=== PATIENT | female | born 1960 ===

== ENCOUNTER 2022-06-12 08:55 | Inpatient (IN) ==
[2022-06-12] MEDS ORDERED: IOPAMIDOL 100 ML BOTTLE IV ONE (08:56)
[2022-06-12] MEDS ORDERED: ONDANSETRON 4 MG/2 ML VIAL IV ONE (09:04)
[2022-06-12] MEDS ORDERED: morphine 4 MG/ML VIAL IV ONE (09:13)
--- NOTE | 2022-06-12 09:15 | Emergency Department Note ---
HPI General Chief complaint: Abdominal Pain Stated complaint: Abdominal Pain Time Seen by Provider: 06/12/22 09:04 Source: patient Mode of arrival: ambulatory Limitations: no limitations History of Present Illness HPI Narrative: Narrative: Patient is a 61-year-old female with a history of hypertension and diabetes who presents to the emergency department due to epigastric abdominal pain. Patient states that it started at 430 or 5 this morning. She states that it is sharp, in the epigastric region, and intermittent. She denies radiation of the pain. She denies any palliative factors, but states that it does seem to get worse when she lays flat. She states that she has had nausea and vomiting as well, an d it seems to have been when the pain occurs. She denies any other concerns at this time. Related Data Home Medications Medication Instructions Recorded Confirmed metformin 500 mg tablet,extended 1,000 mg PO QPM 06/12/22 06/12/22 release 24 hr Allergies Allergy/AdvReac Type Severity Reaction Status Date / Time morphine Allergy Severe Other Verified 06/12/22 09:29 Review of Systems ROS ROS Narrative: Narrative: Constitutional: Denies fever or weakness Eyes: Denies eye pain or vision change ENT ED: Denies throat pain, hearing loss or rhinorrhea Cardiovascular: Denies chest pain or edema Respiratory: Denies shortness of breath or cough Gastrointestinal: Reports abdominal pain, nausea and vomiting; Denies diarrhea, constipation, hematochezia or melena Musculoskeletal: Denies back pain or myalgia Integumentary: Denies rash or lesions Neurological: Denies headache, weakness, numbness, confusion, abnormal gait or dizziness Endocrine: Denies fatigue or polyuria Hematological/Lymphatic: Denies easy bleeding or easy bruising PFS Narrative Patient History Narrative: Narrative: Medical/Surgical/Family History All Active Problems (Updated 06/12/22 @ 09:06 by Terri Santana DO) SBO (small bowel obstruction) (Acute) Hypertension (Acute) Diabetes mellitus (Acute) History of hysterectomy (Acute) History of cholecystectomy (Acute) Social History Smoking Status: Never smoker Exam Narrative Narrative: Narrative: General Limitations: no limitations General appearance: Present alert and in no apparent distress; Absent anxious, appears intoxicated or sleepy Head Head: Present atraumatic and normocephalic Eye Eye: Present PERRL and EOMI; Absent scleral icterus or nystagmus ENT ENT: Present mucous membranes moist; Absent nasal congestion Neck Neck: Present full ROM; Absent tenderness Chest Chest: Present normal inspection and symmetric chest wall rise; Absent tenderness Respiratory Respiratory: Present normal lung sounds bilaterally; Absent respiratory distress or accessory muscle use Cardiovascular Cardiovascular: Present regular rate, normal rhythm and normal heart sounds Adbominal Abdominal: Present soft, tenderness and normal bowel sounds; Absent distention Extremities Extremities: Present normal inspection and full ROM Back Back: Present normal inspection and full ROM Neurological Neurological: Present alert and oriented X3 Psychiatric Psychiatric: Present normal affect and normal mood Skin Skin: Present warm (WNL), dry and normal color Course Vital Signs Vital signs: Vital Signs Temperature 97.8 F 06/12/22 08:57 Pulse Rate 79 06/12/22 08:57 Respiratory Rate 20 06/12/22 08:57 Blood Pressure 238/102 06/12/22 08:57 Pulse Oximetry (%) 96 06/12/22 08:57 Oxygen Delivery Method 06/12/22 08:57 Temperature 97.8 F 06/12/22 08:57 Pulse Rate 61 06/12/22 12:09 Respiratory Rate 20 06/12/22 08:57 Blood Pressure 170/90 06/12/22 12:01 Pulse Oximetry (%) 93 06/12/22 12:09 Oxygen Delivery Method 06/12/22 08:57 MDM MDM Narrative Medical decision making narrative: Narrative: Patient is a 61-year-old female who presented to the emergency department due to abdominal pain, nausea, and vomiting. Differential diagnoses include esophagitis, gastritis, peptic ulcer disease, pancreatitis, small bowel obstruction. Patient CT scan demonstrates mild partial small bowel obstruction. I have spoken with Dr. Guidry who has agreed to see and evaluate patient for admission. Lab Data Result diagrams: 06/12/22 09:10 Labs: Lab Results 06/12/22 06/12/22 06/12/22 Range/Units 09:10 09:10 09:20 WBC 13.9 H (4.5-11.0) K/mcL RBC 5.60 H (3.59-5.38) M/mcL Hgb 15.8 H (11.2-15.7) g/dL Hct 47.6 H (34.1-44.9) % POC Hct 49.0 H (36-48) MCV 85.0 (80.0-100.0) fL MCH 28.2 (26.0-34.0) pg MCHC 33.2 (31.0-36.0) g/dL RDW 11.9 (11.5-14.5) % Plt Count 204 (140-440) K/mcL MPV 11.9 (8.8-12.5) fL Immature Gran % (Auto) 0.4 (0.0-0.5) % Neut % (Auto) 69.1 (38.0-78.0) % Lymph % (Auto) 23.5 (15.5-49.0) % [place] % (Auto) 5.5 (1.0-12.0) % Eos % (Auto) 1.0 (0.0-7.0) % Baso % (Auto) 0.5 (0.0-2.0) % Lymph # (Auto) 3.28 (1.50-4.80) K/mcL [place] # (Auto) 0.77 (0.10-0.90) K/mcL Eos # (Auto) 0.14 (0.00-0.70) K/mcL Baso # (Auto) 0.07 (0.00-0.30) K/mcL Immature Gran # 0.06 H (0.00-0.05) K/mcl Absolute Neutrophils 9.62 H (1.80-8.00) K/mcL POC Sodium 137 (133-145) POC Potassium 4.2 (3.3-5.1) POC Chloride 104 (96-108) POC Total CO2 22.0 (22-30) POC BUN 11 (6-20) POC Creatinine 0.7 (0.6-1.2) POC Glucose 215 H (70-105) POC WB Ioniz Calcium 1.24 (1.16-1.32) Total Bilirubin 0.5 (0.1-1.0) mg/dL Direct Bilirubin < 0.2 (0-0.3) mg/dL AST 25 (<32) U/L ALT 26 (<40) U/L Alkaline Phosphatase 119 H (39-117) U/L Total Protein 8.8 H (5.9-8.4) gm/dL Albumin 4.4 (3.2-5.2) gm/dL Globulin 4.4 H (2.2-3.7) gm/dL Lipase 26 (7-60) U/L POC Troponin I (0.00-0.08) 06/12/22 Range/Units 09:36 WBC (4.5-11.0) K/mcL RBC (3.59-5.38) M/mcL Hgb (11.2-15.7) g/dL Hct (34.1-44.9) % POC Hct (36-48) MCV (80.0-100.0) fL MCH (26.0-34.0) pg MCHC (31.0-36.0) g/dL RDW (11.5-14.5) % Plt Count (140-440) K/mcL MPV (8.8-12.5) fL Immature Gran % (Auto) (0.0-0.5) % Neut % (Auto) (38.0-78.0) % Lymph % (Auto) (15.5-49.0) % [place] % (Auto) (1.0-12.0) % Eos % (Auto) (0.0-7.0) % Baso % (Auto) (0.0-2.0) % Lymph # (Auto) (1.50-4.80) K/mcL [place] # (Auto) (0.10-0.90) K/mcL Eos # (Auto) (0.00-0.70) K/mcL Baso # (Auto) (0.00-0.30) K/mcL Immature Gran # (0.00-0.05) K/mcl Absolute Neutrophils (1.80-8.00) K/mcL POC Sodium (133-145) POC Potassium (3.3-5.1) POC Chloride (96-108) POC Total CO2 (22-30) POC BUN (6-20) POC Creatinine (0.6-1.2) POC Glucose (70-105) POC WB Ioniz Calcium (1.16-1.32) Total Bilirubin (0.1-1.0) mg/dL Direct Bilirubin (0-0.3) mg/dL AST (<32) U/L ALT (<40) U/L Alkaline Phosphatase (39-117) U/L Total Protein (5.9-8.4) gm/dL Albumin (3.2-5.2) gm/dL Globulin (2.2-3.7) gm/dL Lipase (7-60) U/L POC Troponin I < 0.02 (0.00-0.08) EKG Data EKG #1: EKG attestation: Yes I reviewed and interpreted this EKG. EKG results narrative: Normal sinus rhythm with rate of 60, left axis deviation, [place] of 163, QRS of 101, QTc of 441, T wave flattening in aVF, T wave inversion in lead III, and absence of ST elevation or depression. Discharge Plan Patient/Caregiver Discharge Instructions Pt seen by BICYCLE RENTAL CLERK/PA only: No Clinical Impression: SBO (small bowel obstruction) Patient Disposition: Xfer As Inpt ([facility]) Follow up with: No,PCP [Primary Care Provider] - Prescriptions: No Action metformin 500 mg tablet extended release 24 hr 1,000 mg PO QPM
[2022-06-12 09:23] LABS: POC Calcium, Ionized 1.24 (1.16-1.32); POC Creatinine 0.7 (0.6-1.2); POC Potassium 4.2 (3.3-5.1)
[2022-06-12] MEDS ORDERED: HYDROmorphone 0.5 MG/0.5 ML SYRINGE IV ONE (09:34)
[2022-06-12] MEDS ORDERED: 0.9 % SODIUM CHLORIDE 1,000 ML IV ONE (10:03)
[2022-06-12 10:24] LABS: Basophils # (Auto) 0.07 K/mcL (0.00-0.30); Basophils % (Auto) 0.5 % (0.0-2.0); Eosinophils # (Auto) 0.14 K/mcL (0.00-0.70); Hematocrit 47.6 % (34.1-44.9); Hemoglobin 15.8 g/dL (11.2-15.7); Lymphocytes # (Auto) 3.28 K/mcL (1.50-4.80); Lymphocytes % (Auto) 23.5 % (15.5-49.0); Mean Corpuscular HGB Conc 33.2 g/dL (31.0-36.0); Mean Platelet Volume 11.9 fL (8.8-12.5); Monocytes # (Auto) 0.77 K/mcL (0.10-0.90); Monocytes % (Auto) 5.5 % (1.0-12.0); Neutrophils % (Auto) 69.1 % (38.0-78.0); Platelet Count 204 K/mcL (140-440); Red Cell Distribution Width 11.9 % (11.5-14.5); WBC 13.9 K/mcL (4.5-11.0)
[2022-06-12 10:29] LABS: ALT/SGPT 26 U/L (<40); AST/SGOT 25 U/L (<32); Albumin 4.4 gm/dL (3.2-5.2); Alkaline Phosphatase 119 U/L (39-117); Bilirubin,Direct < 0.2 mg/dL (0-0.3); Bilirubin,Total 0.5 mg/dL (0.1-1.0); Globulin 4.4 gm/dL (2.2-3.7)
--- NOTE | 2022-06-12 10:37 | Cat Scan Report ---
CLINICAL INFORMATION: Epigastric pain COMPARISON: None. TECHNIQUE: Following enteric contrast, 80 cc of Isovue-370 were injected intravenously, and 60 seconds later, 0.625 mm helical slices were obtained from the mid heart through the subtrochanteric regions. Following reconstruction, 2.5 mm sagittal, coronal and axial reformatted images were processed and reviewed at bone, lung and soft tissue windows. Five minutes later, 0.625 mm helical slices were obtained from the mid heart through the kidneys and viewed at soft tissue windows.The exam was performed using radiation dose optimization techniques including, but not limited to, automated exposure control, adjustment of the mA and/or kV according to patient size and use of iterative reconstruction technique. FINDINGS: The lung bases are clear. No effusions. The visualized heart is grossly normal. Mild wall thickening the distal esophagus likely related to peptic disease. Abdominal images show the gallbladder is surgically absent. Intrahepatic and common bile ducts are normal caliber CBD is 6 mm. Mild diffuse fatty change seen within the liver but no focal hepatic lesions. Both adrenal glands, spleen, pancreas and aorta, including aortic branches are normal in size configuration and attenuation without focal lesion. 7 mm cyst noted in the posterior mid right kidney. The remainder of both kidneys are normal. There is no free air, free fluid or adenopathy Pelvic images show hysterectomy/left oophorectomy changes. Right ovary is normal size spanning 3.6 x 2.1 cm and contains multiple large clumped calcifications. A 1.9 cm cyst projecting exophytically from the superior left ovary. Urinary bladder is normal. The stomach, duodenum and jejunum are mildly dilated to the mid ileum. In this region, there appears to be adhesions or stricture resulting in partial small bowel obstruction. Distal ileum and colon are relatively decompressed. Mild edema is seen within the mesenteric fat in this region. The appendix is unremarkable. The remaining colon is normal. Bone windows show no osseous abnormality. IMPRESSION: 1. Mild partial small bowel obstruction of the mid ileum due to adhesions or stricture. Minimal edema is seen in the mesenteric fat. 2. Mild wall thickening the distal esophagus. Most common cause would be peptic disease from gastrointestinal reflux disease. 3. Mild fatty change within the liver 4. 7 mm cyst right kidney 5. Hysterectomy and left oophorectomy changes. Right ovary is normal in size but contains moderate clumped calcifications and a 19 mm exophytic cyst. Suggest BALANCE SHEET ANALYST referral. Interpreted and Authenticated by: Dharmesh Bassett 06/12/22
[2022-06-12] MEDS ORDERED: ACETAMINOPHEN 1,000 MG/100 ML BAG IV ONE (10:54)
[2022-06-12] MEDS ORDERED: ONDANSETRON 4 MG/2 ML VIAL IV PRN (13:43)
--- NOTE | 2022-06-12 13:43 | General Surg History&Physical ---
HPI History of Present Illness Patient information: Note initiated : 06/12/22 at 1:41 pm Service Date, if different from initiated Date: [] Patient: Naya Hood a 61 y/o F admitted on for Abdominal Pain. Chief Complaint: [] Chief complaint: Abdominal pain, nausea History of present illness: Ms. Hood is a 61 year old F who started having crampy abdominal pain today, it gradually got worse until she came into the emergency room to be evaluated. She reports that she has a past surgical history of a cholecystectomy and a hysterectomy, has had no prior history of bowel obstructions, she reports decrease flatus and the crampy abdominal pain today. She denies any fevers or chills. She does have some nausea with mild emesis earlier today. Work-up in the emergency room was significant for a CT scan read as a partial small bowel obstruction. PFSH PFSH All Active Problems SBO (small bowel obstruction) (Acute) Hypertension (Acute) Diabetes mellitus (Acute) History of hysterectomy (Acute) History of cholecystectomy (Acute) Social History smoking status: Never smoker MEDS/ALLERGIES Home Medications and Allergies Home Medications Medication Instructions Recorded Confirmed Type metformin 500 mg tablet,extended 1,000 mg PO QPM 06/12/22 06/12/22 History release 24 hr Allergies Allergy/AdvReac Type Severity Reaction Status Date / Time morphine Allergy Severe Other Verified 06/12/22 09:29 Physical Examination Vital Signs Vital signs: Temp Pulse Resp BP Pulse Ox O2 Del Method 97.8 F 61 20 170/90 93 06/12/22 08:57 06/12/22 12:09 06/12/22 08:57 06/12/22 12:01 06/12/22 12:09 06/12/22 08:57 General physical appearance General physical exam: well developed, well nourished and no distress Eyes Eye exam: PERRL and normal ocular movement ENT ENT exam: normal pinna, normal nares, normal mucosa, no hearing loss and no congestion Head Head exam IM: Present atraumatic and normocephalic Neck Neck exam: no masses, no bruits, trachea midline, no lymphadenopathy and no venous distension Cardiovascular Cardiovascular exam IM: Present normal rate and rhythm Respiratory Respiratory exam: normal expansion, normal respiratory effort, clear to percussion and clear to auscultation Abdomen Abdomen: Present soft, tender (Mild tender to palpation) and bowel sounds; Absent masses, guarding, rigid or rebound Hernia: Present none Genitourinary Genitourinary (Female): Present normal external genitalia Rectum Rectum: Present normal sphincter tone, no hemorrhoids, no tenderness, no masses and no bleeding Integumentary Integumentary: Present no rash, no growths and no abnormal pigmentation Neurologic Neurologic: Present normal coordination and normal sensation Musculoskeletal Musculoskeletal: Present normal gait and normal posture Psychiatric Psychiatric: Present oriented to time, oriented to person, oriented to place, speech is normal and memory intact Results Labs Result diagrams: 06/12/22 09:10 Labs: Abnormal lab results 06/12/22 06/12/22 06/12/22 Range/Units 09:10 09:10 09:20 WBC 13.9 H (4.5-11.0) K/mcL RBC 5.60 H (3.59-5.38) M/mcL Hgb 15.8 H (11.2-15.7) g/dL Hct 47.6 H (34.1-44.9) % POC Hct 49.0 H (36-48) Immature Gran # 0.06 H (0.00-0.05) K/mcl Absolute Neutrophils 9.62 H (1.80-8.00) K/mcL POC Glucose 215 H (70-105) Alkaline Phosphatase 119 H (39-117) U/L Total Protein 8.8 H (5.9-8.4) gm/dL Globulin 4.4 H (2.2-3.7) gm/dL Diabetes panel 06/12/22 Range/Units 09:10 AST 25 (<32) U/L ALT 26 (<40) U/L Alkaline Phosphatase 119 H (39-117) U/L Total Protein 8.8 H (5.9-8.4) gm/dL Albumin 4.4 (3.2-5.2) gm/dL Calcium panel 06/12/22 Range/Units 09:10 Albumin 4.4 (3.2-5.2) gm/dL Adrenal panel 06/12/22 Range/Units 09:10 Total Bilirubin 0.5 (0.1-1.0) mg/dL AST 25 (<32) U/L ALT 26 (<40) U/L Alkaline Phosphatase 119 H (39-117) U/L Total Protein 8.8 H (5.9-8.4) gm/dL Albumin 4.4 (3.2-5.2) gm/dL All other labs normal. Imaging CT scan - abdomen: image reviewed A/P Assessment and plan (1) SBO (small bowel obstruction): Plan: This is a pleasant 61-year-old female who is being admitted for a partial small bowel obstruction. Plan: N.p.o., NG tube. Plan small bowel follow-through tomorrow. IV fluid hydration. Status: Acute (2) Hypertension: Status: Acute (3) Diabetes mellitus: Status: Acute Time Spent With Patient Time: Total time spent is greater than 50% in coordination of care (as documented) at patient's floor/unit and/or counseling patient:
--- NOTE | 2022-06-12 13:59 | XRay Report ---
CLINICAL INFORMATION: NG tube placement COMPARISON: None. FINDINGS: NG tip overlies the gastric body The stool gas pattern is unremarkable. There is no free air, soft tissue mass, organomegaly or pathologic calcification. IMPRESSION: Normal abdomen Interpreted and Authenticated by: Dharmesh Bassett 06/12/22
[2022-06-12] MEDS: LACTATED RINGERS 1,000 ML IV SCH ×2 (14:40→22:38)
[2022-06-12] MEDS ORDERED: ENALAPRILAT 1.25 MG/ML VIAL IV SCH ×2 (18:00→20:04)
[2022-06-12] MEDS: HYDROmorphone 0.5 MG/0.5 ML SYRINGE IV PRN (18:26)
[2022-06-12] MEDS: hydrALAZINE 20 MG/ML VIAL IV PRN ×2 (18:56→22:38)
[2022-06-12] MEDS ORDERED: DEXTROSE 50% 50 ML VIAL IV PRN (18:58)
[2022-06-12] MEDS ORDERED: DEXTROSE 31 GM ORAL.SUSP PO PRN (18:58)
--- NOTE | 2022-06-12 19:02 | Internal Medicine Consult Note ---
HPI Date of Consult Consult Date: 06/12/22 Requesting physician: Jose Roberto Guidry Primary Care Provider: PCP No Consult Narrative Chief complaint: Abdominal pain Reason for consult: Hypertension History of present illness: Naya Hood is a 61 year old female with a history of hypertension, diabetes mellitus, cholecystectomy and hysterectomy admitted for a possible small bowel obstruction. Hospital medicine was consulted for elevated blood pressure. Patient says that her abdominal discomfort started earlier on the day of admission. She says that she has not had any flatulence or a bowel movement since the day prior to admission. Regarding her blood pressure, the patient says that she has had hypertension for several years. She takes amlodipine and losartan for blood pressure. She says that her blood pressure is usually well controlled when she has it checked at doctor's appointments. Review of systems Constitutional: no fever, fatigue, or weight loss Eyes: no vision changes or pain Cardiovascular: no chest pain, no palpitations Respiratory: no cough or dyspnea Gastrointestinal: Abdominal pain in mid abdomen, no flatulence or bowel movement since yesterday. Genitourinary: no dysuria or difficulty voiding Musculoskeletal: no arthralgia or myalgia Integumentary: no skin lesion or wound Neurological: no focal weakness or numbness Psychiatric: no anxiety or depression Physical exam Head: Atraumatic, normal inspection. Eyes: normal appearance, no scleral icterus. Neck: full ROM Respiratory: no respiratory distress. Cardiovascular: normal rate and rhythm, S1, S2. GI/Abdominal: Nasogastric tube present, soft, mildly tender abdomen. Extremities: full range of motion, nontender. Neurological: CN II-XII intact, intact motor, intact sensation. Psychiatric: normal mood. Skin: warm, normal color cc:: CC: Jose Roberto Guidry MD [facility] PFS All Active Problems SBO (small bowel obstruction) (Acute) Hypertension (Acute) Diabetes mellitus (Acute) History of hysterectomy (Acute) History of cholecystectomy (Acute) Social History smoking status: Never smoker MEDS/ALLERGIES Home Medications and Allergies Home Medications Medication Instructions Recorded Confirmed Type amlodipine 10 mg tablet 1 tab PO QDAY 06/12/22 06/12/22 History atorvastatin 10 mg tablet 1 tab PO QDAY 06/12/22 06/12/22 History losartan 100 mg tablet 1 tab PO QDAY 06/12/22 06/12/22 History metformin 500 mg tablet,extended 1,000 mg PO QPM 06/12/22 06/12/22 History release 24 hr Allergies Allergy/AdvReac Type Severity Reaction Status Date / Time morphine Allergy Severe Other Verified 06/12/22 09:29 GUILLERMINA Inhibitors AdvReac Intermediate Cough Verified 06/12/22 14:53 EXAM Constitutional Vitals: Temp Pulse Resp BP Pulse Ox O2 Del Method 98.3 F 75 16 198/82 95 06/12/22 18:31 06/12/22 18:31 06/12/22 18:31 06/12/22 18:32 06/12/22 18:31 06/12/22 18:31 DATA Data Completed and Pending Labs: Labs from last 24 hours 06/12/22 06/12/22 06/12/22 09:36 09:20 09:10 WBC RBC Hgb Hct POC Hct 49.0 H MCV MCH MCHC RDW Plt Count MPV Immature Gran % (Auto) Neut % (Auto) Lymph % (Auto) [place] % (Auto) Eos % (Auto) Baso % (Auto) Lymph # (Auto) [place] # (Auto) Eos # (Auto) Baso # (Auto) Immature Gran # Absolute Neutrophils POC Sodium 137 POC Potassium 4.2 POC Chloride 104 POC Total CO2 22.0 POC BUN 11 POC Creatinine 0.7 POC Glucose 215 H POC WB Ioniz Calcium 1.24 Total Bilirubin 0.5 Direct Bilirubin < 0.2 AST 25 ALT 26 Alkaline Phosphatase 119 H Total Protein 8.8 H Albumin 4.4 Globulin 4.4 H Lipase 26 POC Troponin I < 0.02 06/12/22 09:10 WBC 13.9 H RBC 5.60 H Hgb 15.8 H Hct 47.6 H POC Hct MCV 85.0 MCH 28.2 MCHC 33.2 RDW 11.9 Plt Count 204 MPV 11.9 Immature Gran % (Auto) 0.4 Neut % (Auto) 69.1 Lymph % (Auto) 23.5 [place] % (Auto) 5.5 Eos % (Auto) 1.0 Baso % (Auto) 0.5 Lymph # (Auto) 3.28 [place] # (Auto) 0.77 Eos # (Auto) 0.14 Baso # (Auto) 0.07 Immature Gran # 0.06 H Absolute Neutrophils 9.62 H POC Sodium POC Potassium POC Chloride POC Total CO2 POC BUN POC Creatinine POC Glucose POC WB Ioniz Calcium Total Bilirubin Direct Bilirubin AST ALT Alkaline Phosphatase Total Protein Albumin Globulin Lipase POC Troponin I A/P Narrative A/P Narrative: Assessment: 61 year old female with a history of hypertension, diabetes mellitus, cholecystectomy and hysterectomy admitted for a possible small bowel obstruction. Hospital medicine was consulted for elevated blood pressure. The patient usually takes amlodipine and losartan, general surgery plans to have the patient NPO for now. The patient was bradycardic in the ED. #Possible small bowel obstruction #Hypertension #Type 2 Diabetes mellitus #Hyperlipidemia Plan: -Vasotec .625 mg IV Q6 hours, monitor for cough while receiving GUILLERMINA I. -Hydralazine 10 mg IV Q4-6 hrs prn for SBP>180 mm Hg. -If the patient does not tolerate Vasotec could consider IV dihydropyridine calcium channel charles or scheduled low-dose IV beta-charles with holding parameters for heart rate. -Humalog SSI-low for now. -SBO workup and management per general surgery. Time Spent With Patient Time: Total time spent is greater than 50% in coordination of care (as documented) at patient's floor/unit and/or counseling patient:
[2022-06-12] MEDS ORDERED: hydrALAZINE 20 MG/ML VIAL ONE (19:07)
[2022-06-12] MEDS: ENALAPRILAT 1.25 MG/ML VIAL IV SCH (23:26)
[2022-06-12] MEDS: INSULIN LISPRO 1 UNIT/0.01 ML UNIT SQ SCH (23:26)
[2022-06-13] MEDS: ENALAPRILAT 1.25 MG/ML VIAL IV SCH ×2 (05:13→12:52)
[2022-06-13] MEDS: LACTATED RINGERS 1,000 ML IV SCH (05:13)
[2022-06-13] MEDS: INSULIN LISPRO 1 UNIT/0.01 ML UNIT SQ SCH ×4 (05:19→20:37)
[2022-06-13] MEDS: HYDROmorphone 0.5 MG/0.5 ML SYRINGE IV PRN (05:27)
[2022-06-13 06:21] LABS: Basophils # (Auto) 0.05 K/mcL (0.00-0.30); Basophils % (Auto) 0.4 % (0.0-2.0); Eosinophils # (Auto) 0.28 K/mcL (0.00-0.70); Eosinophils % (Auto) 2.3 % (0.0-7.0); Hematocrit 42.9 % (34.1-44.9); Hemoglobin 14.2 g/dL (11.2-15.7); Lymphocytes # (Auto) 4.12 K/mcL (1.50-4.80); Lymphocytes % (Auto) 33.9 % (15.5-49.0); Mean Cell Volume 86.1 fL (80.0-100.0); Mean Corpuscular HGB Conc 33.1 g/dL (31.0-36.0); Mean Platelet Volume 12.4 fL (8.8-12.5); Monocytes # (Auto) 0.85 K/mcL (0.10-0.90); Neutrophils % (Auto) 56.2 % (38.0-78.0); Platelet Count 156 K/mcL (140-440); RBC 4.98 M/mcL (3.59-5.38); Red Cell Distribution Width 12.4 % (11.5-14.5); WBC 12.2 K/mcL (4.5-11.0)
[2022-06-13 06:37] LABS: Blood Urea Nitrogen 9 mg/dL (6-20); Calcium 9.4 mg/dL (8.6-10.4); Carbon Dioxide 26 mmol/L (22-30); Chloride 99 mmol/L (96-108); Glomerular Filtration Rate 99; Glucose 165 mg/dL (70-105)
--- NOTE | 2022-06-13 08:46 | EKG ---
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
[2022-06-13] MEDS ORDERED: DIATRIZOATE MEGLU/DIATRIZO SOD 120 ML BOTTLE PO ONE (10:58)
--- NOTE | 2022-06-13 11:08 | XRay Report ---
CLINICAL INFORMATION: Abdominal pain and distention. Suspect partial mid ileal obstruction due to adhesions or stricture TECHNIQUE: Water-soluble contrast was administered via NG tube and serial imaging was performed over one hour of the abdomen and pelvis. FINDINGS: The stomach is normal in size configuration with normal rugal fold pattern. The duodenum, jejunum and ileum are normal in contour and caliber with thin uniform plicae circulares and wall. No evidence of bowel obstruction. Small bowel transit time approximately one hour IMPRESSION: Normal small bowel follow-through Interpreted and Authenticated by: Dharmesh Bassett 06/13/22
[2022-06-13] MEDS ORDERED: ACETAMINOPHEN 325 MG TABLET PO PRN (12:48)
[2022-06-13] MEDS ORDERED: ATORVASTATIN 10 MG TABLET PO SCH (12:50)
[2022-06-13] MEDS ORDERED: NON FORMULARY MEDICATION 1 DOSE MISCELL (Losartan 100 mg tablet) PO SCH (12:50)
[2022-06-13] MEDS ORDERED: amLODIPine 10 MG TABLET PO SCH (12:50)
--- NOTE | 2022-06-13 14:20 | Internal Med Progress Note ---
SUBJECTIVE Subjective Patient information: Note initiated : 06/13/22 at 2:16 pm Service Date, if different from initiated Date: [] Patient: Naya Hood 61 y/o F admitted on 06/12/22 for Abdominal Pain. Chief Complaint: [] Interval history: Naya Hood is a 61 year old female with a history of hypertension, diabetes mellitus, cholecystectomy and hysterectomy admitted for a possible small bowel obstruction. Hospital medicine was consulted for elevated blood pressure. Patient says that her abdominal discomfort started earlier on the day of admission. She says that she has not had any flatulence or a bowel movement since the day prior to admission. Regarding her blood pressure, the patient says that she has had hypertension for several years. She takes amlodipine and losartan for blood pressure. She says that her blood pressure is usually well controlled when she has it checked at doctor's appointments. 06/13 Blood pressure stable overnight, patient had multiple bowel movements, x-ray small bowel follow-through was normal. Diet advanced to regular by general surgery. Resumed home Norvasc and losartan, discontinued Vasotec IV. Physical exam Head: Atraumatic, normal inspection. Eyes: normal appearance, no scleral icterus. Neck: full ROM Respiratory: no respiratory distress. Cardiovascular: normal rate and rhythm, S1, S2. GI/Abdominal: Nasogastric tube present, soft, mildly tender abdomen. Extremities: full range of motion, nontender. Neurological: CN II-XII intact, intact motor, intact sensation. Psychiatric: normal mood. Skin: warm, normal color Constitutional Vitals: Vital Signs Temp Pulse Resp BP Pulse Ox O2 Del Method 99.4 F H 64 16 169/85 96 06/13/22 12:00 06/13/22 12:00 06/13/22 12:00 06/13/22 12:00 06/13/22 12:00 06/13/22 12:00 Period Temp Pulse Resp BP Sys/Emerson Pulse Ox O2 Del Method O2 Flow Rate Last 24 Hr 98.0 F-99.4 F 57-75 16-20 130-219/55-85 93-98 Room Air-Room Air Intake and Output 06/13/22 06/13/22 06/13/22 05:59 13:59 21:59 Intake Total 1723 921 Output Total 575 200 Balance 1148 721 Weight 93.304 kg Intake & Output: Intake & Output 06/13/22 06/13/22 06/13/22 05:59 13:59 21:59 Intake Total 1723 921 Output Total 575 200 Balance 1148 721 Weight 93.304 kg Intake: IV 1723 921 Lactated Ringers 1,000 ml @ 125 1723 921 mls/hr IV .Q8H [facility] Rx#: [id number] Oral 0 Tube Feeding 0 0 Output: Gastric Drainage 575 200 Right Nare Dukes-Sump 575 200 Other: Stool Size Moderate Stool Color Yellow Green Stool Consistency Liquid # Voids 3 # Bowel Movements 3 OBJ DATA Labs CBC & Chem 7: 06/13/22 05:05 06/13/22 05:05 Labs: Abnormal Lab Results 06/13/22 06/13/22 06/12/22 05:05 05:05 09:20 WBC 12.2 H RBC Hgb Hct POC Hct 49.0 H Immature Gran # Absolute Neutrophils Glucose 165 H POC Glucose 215 H Alkaline Phosphatase Total Protein Globulin 06/12/22 06/12/22 09:10 09:10 WBC 13.9 H RBC 5.60 H Hgb 15.8 H Hct 47.6 H POC Hct Immature Gran # 0.06 H Absolute Neutrophils 9.62 H Glucose POC Glucose Alkaline Phosphatase 119 H Total Protein 8.8 H Globulin 4.4 H Meds: Medications Acetaminophen (Acetaminophen 325 Mg Tablet) 650 mg PO Q4HP PRN; Protocol PRN Reason: Per Pain Protocol Last Admin: 06/13/22 13:03 Dose: 650 mg Amlodipine Besylate (Amlodipine 10 Mg Tablet) 5 mg PO QDAY [facility] Atorvastatin Calcium (Atorvastatin 40 Mg Tablet) 40 mg PO QDAY [facility] Dextrose (Dextrose 50% 50 Ml Vial) 0 ml IV UD PRN PRN Reason: Per Sliding Scale Diagnostic Test (Pha) (Accu-Chek 1 Each Strip) 1 each FS Q6H [facility] Last Admin: 06/13/22 13:08 Dose: 1 each Glucose (Dextrose 31 Gm Oral.Susp) 15 gm PO PRN PRN PRN Reason: Hypoglycemia Hydralazine HCl (Hydralazine 20 Mg/Ml Vial) 10 mg IV Q4-6HP PRN PRN Reason: Hypertension Last Admin: 06/12/22 22:38 Dose: 10 mg Hydromorphone HCl (Hydromorphone 0.5 Mg/0.5 Ml Syringe) 0.5 mg IV Q2HP PRN; Protocol PRN Reason: Per Pain Protocol Last Admin: 06/13/22 05:27 Dose: 0.5 mg Insulin Human Lispro (Insulin Lispro 1 Unit/0.01 Ml Unit) 0 unit SQ Q6 [facility]; Protocol Last Admin: 06/13/22 13:09 Dose: Not Given Losartan Potassium (Losartan 25 Mg Tablet) 25 mg PO QDAY [facility] Ondansetron HCl (Ondansetron 4 Mg/2 Ml Vial) 4 mg IV Q6HP PRN PRN Reason: Nausea And Vomiting A/P Narrative A/P Narrative: Assessment: 61 year old female with a history of hypertension, diabetes mellitus, cholecystectomy and hysterectomy admitted for a possible small bowel obstruction that resolved soon after admission. Hospital medicine was consulted for elevated blood pressure management in the setting of n.p.o. status. Patient was managed with IV antihypertensives while n.p.o. and transitioned to oral home antihypertensives when her diet was advanced to regular. #Possible small bowel obstruction #Hypertension #Type 2 Diabetes mellitus #Hyperlipidemia Plan: -Resume home Norvasc and losartan. -Discontinue Vasotec. -Hydralazine 10 mg IV Q4-6 hrs prn for SBP>180 mm Hg. -Humalog SSI-low for now, holding home metformin. Time Spent With Patient Time: Total time spent is greater than 50% in coordination of care (as documented) at patient's floor/unit and/or counseling patient:
--- NOTE | 2022-06-13 15:12 | General Surgery Progress Note ---
SUBJECTIVE Subjective Patient information: Note initiated : 06/13/22 at 3:10 pm Service Date, if different from initiated Date: [] Patient: Naya Hood 61 y/o F admitted on 06/12/22 for Abdominal Pain. Chief Complaint: [] Interval history: Hospital day #1, patient was mated for a questionable small bowel obstruction on CT scan. Patient's story not the most consistent with partial small bowel obstruction however admitted, NG tube was placed. She went through a small bowel follow-through today which showed contrast through to the colon without evidence of small bowel obstruction. NG tube was discontinued, she was given a regular diet, she tried some clear liquids and got nauseous and threw up. Constitutional Vitals: Vital Signs Temp Pulse Resp BP Pulse Ox O2 Del Method 99.4 F H 64 16 169/85 96 06/13/22 12:00 06/13/22 12:00 06/13/22 12:00 06/13/22 12:00 06/13/22 12:00 06/13/22 12:00 Period Temp Pulse Resp BP Sys/Emerson Pulse Ox O2 Del Method O2 Flow Rate Last 24 Hr 98.0 F-99.4 F 57-75 16-20 130-219/55-85 93-98 Room Air-Room Air Intake and Output 06/13/22 06/13/22 06/13/22 05:59 13:59 21:59 Intake Total 1723 921 Output Total 575 200 Balance 1148 721 Weight 205 lb 11.2 oz 205 lb 11.2 oz Patient Weight 06/14/22 05:59 Weight 205 lb 11.2 oz Intake & Output: Intake & Output 06/13/22 06/13/22 06/13/22 05:59 13:59 21:59 Intake Total 1723 921 Output Total 575 200 Balance 1148 721 Weight 205 lb 11.2 oz 205 lb 11.2 oz Intake: IV 1723 921 Lactated Ringers 1,000 ml @ 125 1723 921 mls/hr IV .Q8H [facility] Rx#: [id number] Oral 0 Tube Feeding 0 0 Output: Gastric Drainage 575 200 Right Nare [place]-Sump 575 200 Other: Stool Size Moderate Stool Color Yellow Green Stool Consistency Liquid # Voids 3 # Bowel Movements 3 General appearance: cooperative and no acute distress GI/Abdominal GI/Abdominal exam: Present soft; Absent distended or tenderness A/P Assessment and plan (1) Hypertension: Plan: Patient admitted with small bowel obstruction, small bowel follow-through without evidence of small bowel obstruction. Nausea and emesis more likely due to a gastroenteritis. We will observe overnight. Continue with clear liquid diets as tolerated. Status: Acute Time Spent With Patient Time: Total time spent is greater than 50% in coordination of care (as documented) at patient's floor/unit and/or counseling patient:
[2022-06-13] MEDS ORDERED: LOSARTAN 25 MG TABLET PO SCH ×2 (16:52→16:54)
[2022-06-13] MEDS ORDERED: amLODIPine 5 MG TABLET PO SCH (17:00)
[2022-06-13] MEDS: LOSARTAN 50 MG TABLET PO SCH (17:09)
[2022-06-13] MEDS: amLODIPine 10 MG TABLET PO SCH (17:09)
[2022-06-14] MEDS: INSULIN LISPRO 1 UNIT/0.01 ML UNIT SQ SCH (07:50)
--- NOTE | 2022-06-14 08:01 | Discharge Summary ---
Discharge Provider Provider IMPORTANT FOLLOW-UP INFORMATION FOR PCP: Patient information: Note initiated : 06/14/22 at 8:00 am Service Date, if different from initiated Date: [] Patient: Naya Hood 61 y/o F admitted on 06/12/22 for Abdominal Pain. Chief Complaint: [] Date of admission: 06/12/22 13:51 Discharge date: 06/14/22 Primary care physician: PCP No Consults: 06/12/22 11:56 Consult to Physician [CONS] Stat Comment: Consulting Provider: Jose Roberto Guidry Reason For Exam: Physician to Consult 06/12/22 18:53 Consult to Physician [CONS] Routine Comment: Please help with HTN Consulting Provider: Manuel Sanchez Reason For Exam: Physician to Consult COURSE Hospital Course Hospital course: Patient presented with signs of gastroenteritis, CT scan done in the ER was read as a partial small bowel obstruction. Patient was admitted, underwent a small bowel follow-through which showed no evidence of a partial small bowel obstruction. Diet was advanced and patient is ready for discharge. Discharge diagnosis: Viral gastroenteritis Time Spent with Patient Time attestation: Total time spent providing and/or coordinating discharge services: Time spent: Less than 30 minutes Physical Examination Vital Signs Vital signs: Temp Pulse Resp BP Pulse Ox O2 Del Method 98.4 F 63 13 148/75 95 06/14/22 06:50 06/14/22 06:50 06/14/22 06:50 06/14/22 06:50 06/14/22 06:50 06/14/22 06:50 Discharge Plan Patient/Caregiver Discharge Instructions Activity: increase activity as tolerated Diet: Regular Diet Activity Restrictions/Additional Instructions: Resume activity as tolerated Prescriptions: Continued metformin 500 mg tablet extended release 24 hr 1,000 mg PO QPM atorvastatin 10 mg tablet 1 tab PO QDAY amlodipine 10 mg tablet 1 tab PO QDAY losartan 100 mg tablet 1 tab PO QDAY Follow Up Plan Follow up with: No,PCP [Primary Care Provider] - Patient Disposition: Home, Self-Care Discharge Orders: Discharge Order (Routine); Ordered 06/14/22 Ordered By: Jose Roberto Guidry Pending Pending Pending: Resuscitation Status Resuscitate (Full Code) Diet Regular Diet Start SunJun 13 1224 Acetaminophen (Acetaminophen 325 Mg Tablet) 650 mg PO Q4HP PRN; Protocol PRN Reason: Per Pain Protocol Last Admin: 06/13/22 13:03 Dose: 650 mg Documented By: TODD Amlodipine Besylate (Amlodipine 10 Mg Tablet) 10 mg PO QDAY [facility] Last Admin: 06/13/22 17:09 Dose: 10 mg Documented By: TODD Diagnostic Test (Pha) (Accu-Chek 1 Each Strip) 1 each FS [facility] Last Admin: 06/14/22 07:40 Dose: 1 each Documented By: Co-signed By: Admin: 06/13/22 20:37 Dose: 1 each Documented By: DOMINIC Hydralazine HCl (Hydralazine 20 Mg/Ml Vial) 10 mg IV Q4-6HP PRN PRN Reason: Hypertension Last Admin: 06/12/22 22:38 Dose: 10 mg Documented By: Admin: 06/12/22 18:56 Dose: 10 mg Documented By: DOMINIC Hydromorphone HCl (Hydromorphone 0.5 Mg/0.5 Ml Syringe) 0.5 mg IV Q2HP PRN; Protocol PRN Reason: Per Pain Protocol Last Admin: 06/13/22 05:27 Dose: 0.5 mg Documented By: Admin: 06/12/22 18:26 Dose: 0.5 mg Documented By: DOMINIC Insulin Human Lispro (Insulin Lispro 1 Unit/0.01 Ml Unit) 0 unit SQ [facility]; Protocol Last Admin: 06/14/22 07:50 Dose: Not Given Documented By: Admin: 06/13/22 20:37 Dose: Not Given Documented By: DOMINIC Losartan Potassium (Losartan 50 Mg Tablet) 100 mg PO DAILY [facility] Last Admin: 06/13/22 17:09 Dose: 100 mg Documented By: TODD Ondansetron HCl (Ondansetron 4 Mg/2 Ml Vial) 4 mg IV Q6HP PRN PRN Reason: Nausea And Vomiting Last Admin: 06/13/22 14:46 Dose: 4 mg Documented By: TODD Shift Summary 06/14/22 03:02 Shift Summary by Tammy Mccabe Primary Diagnosis: Small Bowel Obstruction Registration Status: IP Date of Surgery (if applicable): Pertinent Medical Dx/Issue(s): DM type 2, hypertension. Med management (antibiotics, diuretics, BP): Accuchecks, blood pressure meds, zofran, pain meds Skin/Wound Care: No skin issues Vital Signs with Trends: VSS - BP better controlled O2, liter flow/saturations: On Room air Pain management (acute vs. chronic): Diluadid - none given this shift Lab/Rad (abnormals, trends): WNL Neuro/Mental Status: Alert and oriented x4 Urinary Elimination Device: Taking self to BR Urinary output greater than 30mL/hr? Yes Date of last BM: 06/14 - brown/yellow green BM stated by patient Lines/Tubes: 20G IV to right hand is now SL. Activity: Up ad bebeto in room. Recommendations/questions for MD: Discharge Plan (needs, disposition, etc): Home with Patient calm and cooperative. Slept majority of shift. Up ad bebeto in room. Initialized on 06/14/22 03:02 - END OF NOTE
[2022-06-14] MEDS ORDERED: ATORVASTATIN 10 MG TABLET PO SCH (09:00)
[2022-06-14] MEDS ORDERED: amLODIPine 10 MG TABLET PO SCH (09:00)
[2022-06-14] MEDS ORDERED: LOSARTAN 25 MG TABLET PO SCH (09:00)
[2022-06-14] MEDS ORDERED: ATORVASTATIN 40 MG TABLET PO SCH (09:00)
[2022-06-14] MEDS: LOSARTAN 50 MG TABLET PO SCH (09:11)
[2022-06-14] MEDS: amLODIPine 10 MG TABLET PO SCH (09:17)
== END 2022-06-14 09:45 | disposition home or self-care (01) | DRG 392 ==
LOC: ED 08:55 → MEDSUR 13:51
PROVIDERS: ADMIT Surgery; ATTEND Surgery